=== PATIENT | male | born 1960 | race African-American/Black ===

== ENCOUNTER 2019-07-24 05:02 | Inpatient (IN) | payer MEDICAID ==
[~2019-07-24] VITALS: Ht 185.4 cm; Wt 131.5 kg
[2019-07-24] MEDS ORDERED: BACITRACIN 50000 UNITS/VIAL ONE (06:48)
[2019-07-24] MEDS ORDERED: ANESTHESIA TRAY IN PYXIS 1 EA TRAY MC ONE (06:48)
[2019-07-24] MEDS ORDERED: MIDAZOLAM HCL 2 MG/2ML VIAL ONE (06:50)
[2019-07-24] MEDS ORDERED: oxyCODONE HCL SR 10MG TAB.SR.12H PO ONE (06:50)
[2019-07-24] MEDS ORDERED: CELECOXIB 100 MG CAPSULE ONE (06:51)
[2019-07-24] MEDS ORDERED: SCOPOLAMINE HBR 1 EA PATCH.TD72 TD ONE (06:51)
[2019-07-24] MEDS ORDERED: ACETAMINOPHEN 325 MG TABLET ONE (06:51)
[2019-07-24] MEDS ORDERED: FENTANYL PF 100MCG/2ML AMPUL ONE (06:52)
[2019-07-24] MEDS ORDERED: MORPHINE SULFATE/PF 10 MG/10ML (1MG/ML) AMPUL ONE (06:52)
[2019-07-24] MEDS ORDERED: TRANEXAMIC ACID 3,000 MG in SODIUM CHLORIDE IRRIG SOLUTION 70 ML IR ONE (07:30)
[2019-07-24] MEDS ORDERED: HYDROMORPHONE 1 MG/1 ML DISP.SYRIN ONE (10:04)
--- NOTE | 2019-07-24 10:40 | NUR ---
RECEIVED PT FROM SURGERY FROM [facility] RN. PT IS AWAKE AND ALERT. PT STATES HE IS HUNGRY AND FEELS NO SOB. HAS PAIN IN LOWER BACK AND BED IS UNCOMFORTABLE. WILL CONTINUE TO MONITOR AND GATHER ORDERS. BED IS LOCKED AND IN LOWEST POSITION WITH CALL LIGHT IN REACH.
--- NOTE | 2019-07-24 11:20 | NUR ---
RECEIVED REPORT FROM TORY DHILLON FOR [facility]. PT AWAKE IN BED, ALERT AND ORIENTED X 4, ON ROOM AIR, SATURATING WELL, RESPIRATIONS EVEN AND UNLABORED, NO SIGNS OF RESPIRATORY DISTRESS NOTED. IV SITE ON RIGHT WRIST G18 INTACT, PATENT. REPORTS PAIN IN HIS NECK RATED A 9/10. BED IN LOW POSITION, LOCKED, CALL LIGHT WITHIN REACH. INTRODUCED SELF TO PT AND DISCUSSED PLAN OF CARE.
[2019-07-24] MEDS ORDERED: COLACE 250 MG CAPSULE PO PRN (11:30)
[2019-07-24] MEDS ORDERED: DULCOLAX 10 MG/SUPP.RECT RC PRN (11:30)
[2019-07-24] MEDS ORDERED: AMBIEN 5 MG TABLET PO PRN (11:30)
[2019-07-24] MEDS ORDERED: ZOFRAN 4mg/2ML IV PRN (11:30)
[2019-07-24] MEDS ORDERED: HYDROCODONE/APAP 5/325MG 1 EACH TABLET PO PRN ×2 (11:30→14:30)
[2019-07-24] MEDS ORDERED: TYLENOL 650 MG TABLET PO PRN (11:30)
[2019-07-24] MEDS ORDERED: SENOKOT 8.6 MG TABLET PO PRN (11:30)
--- NOTE | 2019-07-24 11:43 | NUR ---
PT REFUSED SKIN/BODY ASSESMENT
[2019-07-24] MEDS: HYDROMORPHONE 1 MG/1 ML DISP.SYRIN IV PRN ×6 (12:14→22:35)
[2019-07-24 12:59] LABS: HEMOGLOBIN 12.1 g/dL (13.5-17.5)
[2019-07-24] MEDS: IV LR 1000 ML 1,000 ML IV PRN (13:44)
[2019-07-24] MEDS ORDERED: MAG HYDROX/AL HYDROX/SIMETH 30 ML UDC PO PRN (14:30)
[2019-07-24] MEDS ORDERED: ACETAMINOPHEN 325 MG TABLET PO PRN (14:30)
[2019-07-24] MEDS ORDERED: ZOLPIDEM TARTRATE 5 MG TABLET PO PRN (14:30)
[2019-07-24] MEDS ORDERED: Z GUARD REMEDY 2 OZ OINT TP PRN (14:30)
[2019-07-24] MEDS ORDERED: MAGNESIUM HYDROXIDE 30 ML UDC PO PRN (14:30)
[2019-07-24] MEDS ORDERED: ONDANSETRON HCL/PF 4 MG/2 ML VIAL IVP PRN (14:30)
[2019-07-24] MEDS ORDERED: AMLO10TA7 PO (15:36)
[2019-07-24] MEDS ORDERED: METO25TA3 PO (15:36)
[2019-07-24] MEDS ORDERED: ATEN100T PO (15:36)
[2019-07-24] MEDS ORDERED: HYDR-3203 PO (15:36)
[2019-07-24] MEDS ORDERED: METF500T20 PO (15:36)
[2019-07-24] MEDS ORDERED: LOSA100T31 PO (15:36)
[2019-07-24 16:00] VITALS: BP 159/99
[2019-07-24] MEDS: ANCEF 1 GM/50 ML D5W IV SCH ×2 (16:17)
[2019-07-24] MEDS: NICOTINE PATCH (7MG) 7 MG PATCH.TD24 TD SCH (16:41)
--- NOTE | 2019-07-24 17:00 | NUR ---
1700 PT REQUESTED NORCO 10-325MG FOR PAIN MANAGEMENT. UPON RETURNING TO PT'S ROOM WITH 2 NORCO'S 5-325MG, PT STATED HE ONLY WANTS TO TAKE ONE TABLET. RETURNED THE SECOND TABLET TO [facility]. CHARGE NURSE NOTIFIED, PHARMACY NOTIFIED OF OMNICELL REQUESTING TO RETURN 2 TABLETS.
--- NOTE | 2019-07-24 17:56 | NUR ---
PT STATES "I DON'T WANT YOU TO BE MY NURSE, OR EVEN BE IN MY ROOM. YOU MAKE ME FEEL UNCOMFORTABLE."
--- NOTE | 2019-07-24 18:00 | NUR ---
PT'S HOME MEDICATIONS WERE REMOVED FROM PT'S ROOM AND SENT TO PHARMACY.
--- NOTE | 2019-07-24 18:05 | NUR ---
DR. FAUSTIN ORDERED PAIN CONSULT WITH DR. SLADE.
--- NOTE | 2019-07-24 19:30 | NUR ---
DR. FAUSTIN ORDERED PAIN CONSULT WITH DR. AMADO SINCE DR. SLADE IS AWAY FOR HOLIDAYS. ENDORSED TO [facility] SHIFT NURSE.
--- NOTE | 2019-07-24 19:45 | NUR ---
MS RN OPENING NOTES PATIENT AWAKE AND RESTING IN BED. ALERT & ORIENTED X 4. ON ROOM AIR. NO S/S OF ACUTE RESPIRATORY DISTRESS OR SOB. PATIENT COMPLAINING OF LEFT KNEE PAIN. PER REPORT, PATIENT RECEIVED 1 MG OF DILAUDID AT 1800. RICH CATH PRESENT AND INTACT, 350 CC OF URINE PRESENT, CLEAR AND YELLOW. IV ON RIGHT WRIST, SIZE 18, INTACT & PATENT, LR RUNNING AT 100 CC/HR. LEFT LEG BRACE ON PATIENT. SCDS ATTACHED BILATERALLY. BED SET IN LOWEST POSITION & LOCKED. CALL LIGHT WITHIN REACH. WILL CONTINUE TO MONITOR.
[2019-07-24 20:00] VITALS: BP 191/91
--- NOTE | 2019-07-24 22:35 | NUR ---
MS RN NOTES PATIENT COMPLAINING OF LEFT KNEE PAIN RATED 10/10. PER PATIENT'S REQUEST ADMINISTERED 1 MG OF DILAUDID. CALL LIGHT WITHIN REACH. WILL CONTINUE TO MONITOR EFFECTIVENESS OF PAIN MEDICATION.
[2019-07-25] MEDS: ANCEF 1 GM/50 ML D5W IV SCH ×8 (00:16→23:47)
[2019-07-25] MEDS: HYDROMORPHONE 1 MG/1 ML DISP.SYRIN IV PRN ×7 (02:33→22:50)
--- NOTE | 2019-07-25 02:33 | NUR ---
MS RN NOTES PATIENT COMPLAINING OF LEFT KNEE PAIN RATED 10/10. PER PATIENT'S REQUEST ADMINISTERED PRN 1 MG OF DILAUDID. CALL LIGHT WITHIN REACH. WILL CONTINUE TO MONITOR EFFECTIVENESS OF MEDICATION.
[2019-07-25] MEDS: IV LR 1000 ML 1,000 ML IV PRN ×2 (04:33→23:47)
--- NOTE | 2019-07-25 05:31 | NUR ---
MS RN NOTES PATIENT COMPLAINING OF LEFT KNEE PAIN, RATED 10/10. ADMINISTERED 1MG OF DILAUDID PRN PER PATIENT'S REQUEST. CALL LIGHT WITHIN REACH. WILL CONTINUE TO MONITOR.
[2019-07-25 06:23] LABS: BASOPHILS % (AUTO) 0.1 % (0.0-2.0); EOSINOPHILS % (AUTO) 0.3 % (0.0-6.0); HEMATOCRIT 33 % (39-51); HEMOGLOBIN 10.6 g/dL (13.5-17.5); LYMPHOCYTES # (AUTO) 1.7 /CMM (0.8-4.8); LYMPHOCYTES % (AUTO) 13.2 % (20.0-44.0); MEAN CORPUSCULAR HGB CONC 32 g/dl (31.0-36.0); MEAN CORPUSCULAR VOLUME 79 fL (80-96); MONOCYTES # (AUTO) 2.7 /CMM (0.1-1.30); MONOCYTES % (AUTO) 21.1 % (2.0-12.0); NEUTROPHILS # (AUTO) 8.5 /CMM (1.8-8.9); NEUTROPHILS % (AUTO) 65.3 % (43.0-81.0); PLATELET COUNT (AUTO) 234 /CMM (150-450); RED BLOOD CELL COUNT(AUTO) 4.21 MIL/uL (4.5-6.0)
[2019-07-25 06:39] LABS: CALCIUM, SERUM 8.5 mg/dL (8.5-10.1); MAGNESIUM 1.8 mg/dL (1.8-2.4); PHOSPHORUS 3.3 mg/dL (2.5-4.9)
--- NOTE | 2019-07-25 06:39 | NUR ---
MS RN CLOSING NOTES PATIENT SLEEPING IN BED, EASY TO AWAKEN. ALERT & ORIENTED X 4. NO S/S OF ACUTE RESPIRATORY DISTRESS OR SOB. LEFT LEG SECURED WITH BRACE. SCDS ON BOTH LEGS. IV ON RIGHT WRIST, SIZE 18, INTACT & PATENT W/ LR RUNNING AT 100 CC/HR. BED SET IN LOWEST POSITION & LOCKED. UPPER SIDE RAILS RAISED. CALL LIGHT WITHIN REACH. WILL ENDORSE TO DAY SHIFT NURSE TO FOLLOW PLAN OF CARE.
[2019-07-25 08:00] VITALS: BP 173/104
--- NOTE | 2019-07-25 08:19 | NUR ---
MS RN NOTES PAGED DR. AMADO ABOUT ADJUSTING PATIENT PAIN MEDICATION. PATIENT HAS UNRELIEVED PAIN AND WOULD LIKE TO CHANGE PAIN MEDICATION TO SOMETHING STRONGER.
--- NOTE | 2019-07-25 08:25 | NUR ---
MS RN NOTES A NEW ORDER FROM DR. AMADO, PERCOCET 5/325 MG Q4H FOR MODERATE PAIN AND 10/325 MG Q4H FOR SEVERE PAIN. WILL IMPLEMENT PAIN MANAGEMENT ORDERED.
[2019-07-25] MEDS ORDERED: oxyCODONE/APAP (5/325 MG) 1 UDTAB TABLET PO PRN (08:30)
[2019-07-25 08:41] LABS: LYMPHOCYTES % (MANUAL) 16 % (16-48); MONOCYTES % (MANUAL) 20 % (0-11.0); NEUTROPHILS % (MANUAL) 64 (42-76)
[2019-07-25] MEDS: ASPIRIN 325 MG TABLET PO SCH (09:35)
[2019-07-25] MEDS: NICOTINE PATCH (7MG) 7 MG PATCH.TD24 TD SCH (09:43)
[2019-07-25] MEDS: oxyCODONE/APAP (5/325 MG) 1 UDTAB TABLET PO PRN ×4 (09:43→23:47)
--- NOTE | 2019-07-25 10:00 | NUR ---
RN MS NOTES RICH CATHETER REMOVED, NO BLEEDING AT SITE, PATIENT VOIDED AFTER REMOVAL.
[2019-07-25 10:45] VITALS: BP 173/104
[2019-07-25 15:19] VITALS: BP 179/101
--- NOTE | 2019-07-25 19:19 | NUR ---
RN MS CLOSING NOTES PATIENT RESTING IN BED, CALL LIGHT WITHIN REACH. PATIENT EASILY AROUSED TO NAME, PATIENT REPOSITIONED IN BED. WILL TRANSFER PATIENT CARE TO NEXT SHIFT.
--- NOTE | 2019-07-25 19:47 | NUR ---
MS/RN OPENING NOTES: RECEIVED PATIENT AWAKE AND RESTING IN BED. A/O X 4. ON ROOM AIR. NO S/S OF ACUTE RESPIRATORY DISTRESS OR SOB. PATIENT COMPLAINING OF LEFT KNEE PAIN 04/16. GIVEN PERCOCET 5/325 MG 2 TABS ORDERED. IV ACCESS ON RIGHT WRIST, SIZE 18, INTACT & PATENT. LEFT LEG BRACE ON PATIENT. SCDS ATTACHED BILATERALLY. SAFETY MEASURES ARE IN PLACE, BED SET IN LOWEST POSITION & LOCKED. CALL LIGHT WITHIN REACH. WILL CONTINUE TO MONITOR ACCORDINGLY.
[2019-07-25 20:00] VITALS: BP 136/103
--- NOTE | 2019-07-25 20:50 | NUR ---
MS/RN NOTES: PATIENT COMPLAINED OF 9/10 PAIN ON THE LEFT LOWER KNEE. GIVEN DILAUDID 1MG PRN IV ORDERED. PER PATIENT, "THE PAIN MEDICATION IS NOT ENOUGH, I NEED MORE OR I'LL GO HOME TOMORROW". PATIENT IS STABLE. WILL CONTINUE TO MONITOR ACCORDINGLY.
--- NOTE | 2019-07-25 22:00 | NUR ---
MS/RN NOTES: TEXTED DR. ROACH REGARDING PATIENT REQUEST FOR AN INCREASE OF DOSE FOR PAIN MEDICATION. WAITING FOR RESPONSE.
--- NOTE | 2019-07-25 23:47 | NUR ---
MS/RN NOTES: PATIENT COMPLAINING OF PAIN LEVEL OF 9/10 ON THE LEFT LOWER KNEE. PERCOCET 5/325 MG 2 TABS PO GIVEN ORDERED. TOLERATED WELL. PATIENT INFORMED OF DR. ROACH'S DECISION NOT TO INCREASE DOSE. WILL CONTINUE TO MONITOR PT ACCORDINGLY.
[2019-07-26] MEDS: HYDROMORPHONE 1 MG/1 ML DISP.SYRIN IV PRN ×4 (02:47→13:45)
--- NOTE | 2019-07-26 02:47 | NUR ---
MS/RN NOTES: PATIENT COMPLAINING OF PAIN LEVEL OF 9/10 ON THE LEFT LOWER KNEE. DILAUDID 1 MG IV GIVEN ORDERED. PATIENT IS STABLE. WILL CONTINUE TO MONITOR PT ACCORDINGLY.
[2019-07-26] MEDS: oxyCODONE/APAP (5/325 MG) 1 UDTAB TABLET PO PRN ×3 (03:56→12:01)
--- NOTE | 2019-07-26 03:56 | NUR ---
MS/RN NOTES: PATIENT COMPLAINING OF PAIN LEVEL OF 9/10 ON THE LEFT LOWER KNEE. PERCOCET 5/325 MG 2 TABS PO GIVEN ORDERED. TOLERATED WELL. WILL CONTINUE TO MONITOR PT ACCORDINGLY.
--- NOTE | 2019-07-26 05:16 | NUR ---
MS/RN NOTES: PATIENT COMPLAINING OF PAIN LEVEL OF 8/10 ON THE LEFT LOWER KNEE. DILAUDID 1 MG IV GIVEN ORDERED. PATIENT IS STABLE. WILL CONTINUE TO MONITOR PT ACCORDINGLY.
[2019-07-26 06:30] LABS: BASOPHILS % (AUTO) 0.2 % (0.0-2.0); EOSINOPHILS % (AUTO) 2.2 % (0.0-6.0); HEMATOCRIT 33 % (39-51); HEMOGLOBIN 10.5 g/dL (13.5-17.5); LYMPHOCYTES # (AUTO) 1.6 /CMM (0.8-4.8); LYMPHOCYTES % (AUTO) 10.8 % (20.0-44.0); MEAN CORPUSCULAR HGB CONC 33 g/dl (31.0-36.0); MEAN CORPUSCULAR VOLUME 78 fL (80-96); MONOCYTES % (AUTO) 19.8 % (2.0-12.0); NEUTROPHILS # (AUTO) 10.2 /CMM (1.8-8.9); PLATELET COUNT (AUTO) 223 /CMM (150-450); RED BLOOD CELL COUNT(AUTO) 4.15 MIL/uL (4.5-6.0); WHITE BLOOD COUNT (AUTO) 15.3 K/uL (4.3-11.0)
--- NOTE | 2019-07-26 06:36 | NUR ---
MS/RN CLOSING NOTES: PATIENT IS AWAKE IN BED. A/O X 4. NO SIGNIFICANT CHANGES IN CONDITION. ON ROOM AIR. NO S/S OF ACUTE RESPIRATORY DISTRESS OR SOB. PAIN MANAGED THROUGH THE NIGHT. ALL DUE MEDS GIVEN ORDERED. POSSIBLE D/C TODAY. STILL WAITING ON ORDERS. ALL NURSING NEEDS MET AND PROVIDED. IV ACCESS ON RIGHT WRIST, SIZE 18, INTACT & PATENT. SAFETY MEASURES ARE IN PLACE, BED SET IN LOWEST POSITION & LOCKED. CALL LIGHT WITHIN REACH. WILL ENDORSE PLAN OF CARE TO DAY DAY SHIFT.
[2019-07-26 06:44] LABS: CALCIUM, SERUM 8.7 mg/dL (8.5-10.1); CREATININE 0.9 mg/dL (0.6-1.3); POTASSIUM 4.2 mmol/L (3.5-5.1)
[2019-07-26 08:00] VITALS: BP 131/100
[2019-07-26] MEDS: NICOTINE PATCH (7MG) 7 MG PATCH.TD24 TD SCH (08:11)
[2019-07-26] MEDS: ANCEF 1 GM/50 ML D5W IV SCH ×2 (08:11)
[2019-07-26] MEDS: ASPIRIN 325 MG TABLET PO SCH (09:57)
[2019-07-26 10:00] VITALS: BP 179/99
[2019-07-26 11:30] VITALS: BP 153/86
--- NOTE | 2019-07-26 11:30 | NUR ---
patient recieved awake ans alert and with complaints of incisional pain to the left knee.percocet 2 tabs given and claims that the pain only goes down to 7. was given dialudid 1 mg ivp for pain and still with compliants of pain.expressed desire to go home and will infor the physician about the patient desire. no bm for 3 days, milk of magnesia offred and ready but claims will take it later time
--- NOTE | 2019-07-26 13:00 | NUR ---
rn notes received patient in stable condition. a/ox4. not in any form of distress. no sob. tolerating pain on left knee at the moment. iv access intact and patent. kept patient safe and comfortable. bed in low/locked position. siderails upx2, call light in reach. will continue to monitor accordingly.
--- NOTE | 2019-07-26 13:00 | NUR ---
report given to another rn for continued care.
[2019-07-26] MEDS ORDERED: ASPI-992 PO (14:12)
--- NOTE | 2019-07-26 15:55 | NUR ---
discharged patient in stable condition, accompanied by primary nurse and veda Burnett. patient leaving via [employer] transportation. discharged instructions given, verbalized understanding. patient refused to be seen by pain management doctor. Nikita Villafuerte, ortho, seen the patient and changed the dressing and gave discharged instructions to leave the dressing till the next ortho f/u. photo was taken. all belongings and home medications returned to patient. dc paperwork handed to patient. all forms signed. iv access removed. name band removed. Addendum: 07/26/19 at 1818 by EZIO ARGUELLES [facility] arranged by Case Management
== END 2019-07-26 15:50 | disposition home health service (06) | DRG 302 ==
LOC: DS 05:02 → MED 10:57
PROVIDERS: ADMIT Family Medicine; ATTEND Family Medicine
PROC: 0SRD0J9 Replacement of Left Knee Joint with Synthetic Substitute, Cemented, Open Approach (ICD-10-PCS; principal; 2019-07-24)
DX: M17.12 Unilateral primary osteoarthritis, left knee (principal); D63.8 Anemia in other chronic diseases classified elsewhere; E11.9 Type 2 diabetes mellitus without complications; E66.9 Obesity, unspecified; D72.829 Elevated white blood cell count, unspecified; I10 Essential (primary) hypertension; Z72.0 Tobacco use; Z96.651 Presence of right artificial knee joint; Z98.890 Other specified postprocedural states
CPT/HCPCS: 36415; 80048-TC; 80061-TC; 82962-TC; 83735-TC; 84100-TC; 85025-TC; 85027-TC; 86850-TC; 86921-TC; 87081-TC; 88305-TC; 88311-TC; 97110-TC; 97116-TC; 97530-TC; A4217; C1713; C1776; G0378; J0690; J1170; J2001; J2250; J2274; J2704; J3010; J3490; J7060; J7120